=== PATIENT | female | born 1985 | race Caucasian/White ===

== ENCOUNTER 2017-10-06 17:40 | Emergency (ER) | payer SELFPAY ==
[~2017-10-06] VITALS: Ht 165.1 cm; Wt 81.6 kg
[2017-10-06 17:49] VITALS: BP 104/52
[2017-10-06] MEDS ORDERED: IV NORMAL SALINE 1,000ML 1,000 ML IV ONE (18:00)
[2017-10-06] MEDS ORDERED: IV NORMAL SALINE 500ML 500 ML IV SCH (18:00)
--- NOTE | 2017-10-06 18:07 | PHYS DOC ---
Past History Past Medical History: No Pertinent History Past Surgical History: No Surgical History Smoking: Non-smoker Drug Use: Marijuana, Methamphetamine Adult General Chief Complaint Chief Complaint: ABDOMINAL PAIN HPI HPI 32-year-old female patient A2 states she had her menstruation in early August and had today's vaginal bleeding 2 weeks ago that was unlike her usual 70s of vaginal bleeding and had to home positive test. Patient states she has one negative test in the clinic and one positive test in [facility] one week ago. Patient complaining of lower abdominal pain for the last 3 days as a constant and sharp pain with radiation to her back without vaginal bleeding or discharge and rated her pain 10 over 10. Patient also states she was not able to urinate for the last 3 days that happens frequently with episodes of UTI. Patient complaining of subjective fever and chills without nausea and vomiting, constipation and diarrhea, shortness of breath and chest pain. Review of Systems Review of Systems Constitutional: Ports subjective fever or chills [] Eyes: Denies change in visual acuity, redness, or eye pain [] HENT: Denies nasal congestion or sore throat [] Respiratory: Denies cough or shortness of breath [] Cardiovascular: No additional information not addressed in HPI [] GI: Ports abdominal pain, denies nausea, vomiting, bloody stools or diarrhea [] : Denies dysuria or hematuria [] Musculoskeletal: Denies back pain or joint pain [] Integument: Denies rash or skin lesions [] Neurologic: Denies headache, focal weakness or sensory changes [] Endocrine: Denies polyuria or polydipsia [] All other systems were reviewed and found to be within normal limits, except as documented in this note. Current Medications Current Medications Current Medications Medications (Trade) Dose Ordered Sig/Aleks Start Time Stop Time Status Last Admin Dose Admin Sodium Chloride 500 ml @ 500 mls/hr Q1H 10/06/17 18:00 UNV Allergies Allergies Allergies Coded Allergies Type Severity Reaction Last Updated Verified Penicillins Allergy Unknown 10/06/17 Yes mold Allergy Unknown 10/06/17 Yes Physical Exam Physical Exam Constitutional: Well nourished, moderate distress, non-toxic appearance, anxious and agitated. [] HENT: Normocephalic, atraumatic, oropharynx moist, no oral exudates. [] Eyes: PERRLA, EOMI, conjunctiva normal, no discharge. [] Neck: Normal range of motion, no tenderness, supple, no stridor. [] Cardiovascular:Heart rate regular rhythm, no murmur [] Lungs & Thorax: Bilateral breath sounds clear to auscultation [] Abdomen: Bowel sounds normal, soft, suprapubic guarding without tenderness, no masses, no pulsatile masses. [] Skin: Warm, dry, no erythema, no rash. [] Back: No tenderness, no CVA tenderness. [] Extremities: No tenderness, no cyanosis, no clubbing, ROM intact, no edema. [] Neurologic: Alert and oriented X 3, normal motor function, normal sensory function, no focal deficits noted. [] Psychologic: Affect anxious, judgement normal, mood normal. [] Current Patient Data Vital Signs Vital Signs Date Time Temp Pulse Resp B/P (MAP) Pulse Ox O2 Delivery O2 Flow Rate FiO2 10/06/17 17:49 98.8 100 18 100 Room Air EKG EKG [] Radiology/Procedures Radiology/Procedures [] Impressions: CT Abdomen and Pelvis With Intravenous Contrast: History: Severe lower abdominal pain, fever, chills for 3 days.. Comparison: None. Technique: After administration of intravenous contrast, 75 mL Omnipaque-300, CT of the abdomen and pelvis was performed. Exposure: One or more of the following individualized dose reduction techniques were utilized for this examination: 1. Automated exposure control 2. Adjustment of the mA and/or kV according to patient size 3. Use of iterative reconstruction technique Findings: Evaluation of enteric structures may be limited by lack of oral contrast. Liver, spleen, pancreas, gallbladder, and bilateral adrenal glands are unremarkable. Bilateral kidneys enhance symmetrically. No bowel obstruction or inflammation is identified. Appendix appears within normal limits. The uterus is retroflexed. There are bilateral fluid-filled tubular structures involving the pelvis adjacent to the uterus, with evidence of inflammation, favored to represent bilateral tubo-ovarian abscesses versus bilateral hydrosalpinges. Urinary bladder is displaced anteriorly. Urinary bladder is not well distended with urine. Given level of distention, urinary bladder wall appears at upper limits of normal. Degenerative disc disease is seen at L5-S1. Impression: 1. Bilateral tubular structures are seen in the pelvis with evidence of inflammation. Findings are compatible with bilateral tubo-ovarian abscesses versus bilateral hydrosalpinges. Recommend correlation with history and physical including pelvic examination. Electronically signed by: Kashmir Castañeda MD (10/06/2017 7:43 PM) [facility] DICTATED AND SIGNED BY: KASHMIR CASTAÑEDA MD DATE: 10/06/171937 CC: ERIC SARAH DO; PCPCHRISTOPHER ~ Course & Med Decision Making Course & Med Decision Making Pertinent Labs are pending. Patient care transferred to Dr. Sarah at 1800 The patient had evidence of UTI in her urine. During my examination, the patient was still having significant pain this seemed unusual for UTI. I decided to do a CT of the abdomen and pelvis. The patient's labs showed a white count of 22.4 with left shift. The CT scan showed bilateral tubo-ovarian abscesses. I then performed a pelvic exam to get cultures and discovered a retained foreign body which appeared to be an old tampon. The patient states that her last period was 2 weeks ago and it is possible that this is a retained tampon from that time. I removed as much of the foreign object as I could. Blood cultures were obtained. The patient was started on cefoxitin and doxycycline by IV. I discussed the case with gynecology, Dr. Foreman and he is accepted the patient for admission at [facility]. I discussed all these results with the patient and she is in agreement with transfer and treatment. Dragon Disclaimer Dragon Disclaimer This electronic medical record was generated, in whole or in part, using a voice recognition dictation system. Departure Departure: Referrals: CHRISTOPHER LEIJA (PCP) HALLE SCOTT MD Oct 06, 2017 18:07 ERIC SARAH DO Oct 06, 2017 22:50
[2017-10-06 18:23] LABS: BASO # 0.1 x10^3/uL (0.0-0.2); BASO % 0 % (0-3); EOS % 0 % (0-3); HEMATOCRIT 37.4 % (36.0-47.0); HEMOGLOBIN 12.2 g/dL (12.0-15.5); LYMPH # 1.5 x10^3/uL (1.0-4.8); LYMPH % 7 % (24-48); MEAN CORPUSCULAR HEMOGLOBIN 28 pg (25-35); MEAN CORPUSCULAR HGB CONC 33 g/dL (31-37); MEAN CORPUSCULAR VOLUME 86 fL (79-100); MONO # 1.6 x10^3/uL (0.0-1.1); MONO % 7 % (0-9); NEUT # 19.2 x10^3uL (1.8-7.7); NEUT % 86 % (31-73); PLATELET COUNT 364 x10^3/uL (140-400); RED BLOOD COUNT 4.36 x10^6/uL (3.50-5.40); RED CELL DISTRIBUTION WIDTH 13.3 % (11.5-14.5); WHITE BLOOD COUNT 22.4 x10^3/uL (4.0-11.0)
[2017-10-06 18:37] LABS: PREG TEST PT QUAL NEGATIVE (NEG)
[2017-10-06 18:39] LABS: ALBUMIN 3.2 g/dL (3.4-5.0); ALBUMIN/GLOBULIN RATIO 0.8 (1.0-1.7); CALCIUM 8.9 mg/dL (8.5-10.1); GFR 64.7; POTASSIUM 3.1 mmol/L (3.5-5.1); TOTAL BILIRUBIN 0.9 mg/dL (0.2-1.0); TOTAL PROTEIN 7.3 g/dL (6.4-8.2)
[2017-10-06] MEDS ORDERED: POTASSIUM CHLORIDE 20 MEQ TABLET.ER. PO ONE (18:45)
[2017-10-06] MEDS ORDERED: IOHEXOL 300 MG/ML 75 ML VIAL. IV ONE (19:30)
--- NOTE | 2017-10-06 19:47 | RAD ---
CT Abdomen and Pelvis With Intravenous Contrast: History: Severe lower abdominal pain, fever, chills for 3 days.. Comparison: None. Technique: After administration of intravenous contrast, 75 mL Omnipaque-300, CT of the abdomen and pelvis was performed. Exposure: One or more of the following individualized dose reduction techniques were utilized for this examination: 1. Automated exposure control 2. Adjustment of the mA and/or kV according to patient size 3. Use of iterative reconstruction technique Findings: Evaluation of enteric structures may be limited by lack of oral contrast. Liver, spleen, pancreas, gallbladder, and bilateral adrenal glands are unremarkable. Bilateral kidneys enhance symmetrically. No bowel obstruction or inflammation is identified. Appendix appears within normal limits. The uterus is retroflexed. There are bilateral fluid-filled tubular structures involving the pelvis adjacent to the uterus, with evidence of inflammation, favored to represent bilateral tubo-ovarian abscesses versus bilateral hydrosalpinges. Urinary bladder is displaced anteriorly. Urinary bladder is not well distended with urine. Given level of distention, urinary bladder wall appears at upper limits of normal. Degenerative disc disease is seen at L5-S1. Impression: 1. Bilateral tubular structures are seen in the pelvis with evidence of inflammation. Findings are compatible with bilateral tubo-ovarian abscesses versus bilateral hydrosalpinges. Recommend correlation with history and physical including pelvic examination. Electronically signed by: Kashmir Lange MD (10/06/2017 7:43 PM) [facility]
[2017-10-06 20:40] LABS: % BANDS 2 % (0-9); % LYMPHS 4 % (24-48); % MONOS 5 % (0-10); % SEGS 86 % (35-66)
[2017-10-06 20:42] LABS: PLT ESTIMATE ADEQUATE (ADEQUATE)
[2017-10-06] MEDS ORDERED: HYDROmorphone PF 1 MG/ML DISP.SYRIN IV ONE (20:45)
[2017-10-06] MEDS ORDERED: ONDANSETRON PF 4 MG/2 ML VIAL. IV ONE (20:45)
[2017-10-06 20:46] LABS: STOMATOCYTES PRESENT
[2017-10-06 20:50] LABS: % ATYL 3 % (0-0)
[2017-10-06 22:11] LABS: BILIRUBIN,URINE SMALL (NEG); CLARITY,URINE CLOUDY; COLOR,URINE YELLOW; NITRITE,URINE NEG (NEG); UROBILINOGEN,URINE 2 mg/dL (0.2 mg/dL)
[2017-10-06 22:12] LABS: GLUCOSE,URINE NEG (NEG)
[2017-10-06] MEDS ORDERED: DOXYCYCLINE HYCLATE 100 MG in IV DEXTROSE 5% 100 ML IV ONE (22:30)
== END 2017-10-07 00:06 | disposition short-term general hospital (02) ==
LOC: ER 17:40
DX: N39.0 Urinary tract infection, site not specified (principal); N70.92 Oophoritis, unspecified; Z88.0 Allergy status to penicillin; Z91.048 Other nonmedicinal substance allergy status
CPT/HCPCS: 36415; 74177; 80053; 81003; 84702; 84703; 85007; 85025; 87040; 96365; 96366; 96368; 96375; 96376; 99285; J0694; J2405; J3010; J3490; Q9967; J7030

== ENCOUNTER 2019-08-24 13:12 | Emergency (ER) | payer BC ==
[~2019-08-24] VITALS: Ht 165.1 cm; Wt 98.0 kg
--- NOTE | 2019-08-24 13:39 | PHYS DOC ---
Past History Past Medical History: No Pertinent History Past Surgical History: No Surgical History Smoking: Non-smoker Drug Use: Marijuana, Methamphetamine General Adult EDM: Chief Complaint: ABDOMINAL PAIN HPI: HPI: Patient is a 34-year-old female who presents to the emergency department for evaluation of pelvic pain. She states she began her menstrual period today and has had significantly increased pelvic cramping. She states she had a similar episode about 2 years ago, when she was transferred from here to and diagnosed with fallopian tube cysts. She has not noticed any vaginal discharge. She has not had any nausea, vomiting, dysuria, fevers, or chills. There are no alleviating or exacerbating factors to her symptoms. Review of Systems: Review of Systems: Constitutional: Denies fever or chills Eyes: Denies change in visual acuity HENT: Denies nasal congestion or sore throat Respiratory: Denies cough or shortness of breath Cardiovascular: Denies chest pain or edema GI: Denies abdominal pain, nausea, vomiting, bloody stools or diarrhea : Denies dysuria. Reports vaginal bleeding and pelvic pain. Musculoskeletal: Denies back pain or joint pain Integument: Denies rash Neurologic: Denies headache, focal weakness or sensory changes Endocrine: Denies polyuria or polydipsia Lymphatic: Denies swollen glands Psychiatric: Denies depression or anxiety Heart Score: Risk Factors: Risk Factors: DM, Current or recent (<one month) smoker, HTN, HLP, family history of CAD, obesity. Risk Scores: Score 0 - 3: 2.5% MACE over next 6 weeks - Discharge Home Score 4 - 6: 20.3% MACE over next 6 weeks - Admit for Clinical Observation Score 7 - 10: 72.7% MACE over next 6 weeks - Early Invasive Strategies Current Medications: Current Meds: Current Medications Medications (Trade) Dose Ordered Sig/Aleks Start Time Stop Time Status Last Admin Dose Admin Ketorolac Tromethamine (Toradol 30mg Vial) 30 mg 1X ONCE 08/24/19 13:45 08/24/19 13:46 UNV Allergies: Allergies: Allergies Coded Allergies Type Severity Reaction Last Updated Verified Penicillins Allergy Unknown 10/06/17 Yes amoxicillin Allergy Unknown 08/24/19 Yes mold Allergy Unknown 10/06/17 Yes Physical Exam: PE: PHYSICAL EXAM: CONSTITUTIONAL: Well developed, well nourished HEAD: normocephalic, atraumatic EENT: PERRL, EOMI. Conjunctivae normal color, sclerae non-icteric; moist mucous membranes. NECK: Supple, non-tender; no meningismus. LUNGS: Lungs CTA, breathing even and unlabored. Normal air movement. HEART: Regular rate and rhythm, no murmur CHEST: No deformity; non-tender ABDOMEN: The abdomen is soft, and non-tender, no masses or bruits. There is, however, suprapubic tenderness to palpation, without rebound or guarding. EXTREM: Normal ROM; no deformity, no calf tenderness. Normal pulses palpable in all extremities. There is no pedal edema. SKIN: No rash; no diaphoresis NEURO: Alert; normal speech and cognition; CN's grossly intact; strength grossly intact without focal deficit. BACK: No CVA TTP. GENITOURINARY: Normal external genitalia. There is a trace amount of vaginal bleeding, the cervix otherwise appears normal, there is mild cervical motion tenderness, there is no vaginal discharge, there is no definite suprapubic mass or suprapubic tenderness to palpation. Exam was performed in the presence of the patient's nurse, Arabella. Current Patient Data: Labs: Laboratory Tests Test 08/24/19 14:00 08/24/19 14:11 08/24/19 14:20 08/24/19 14:31 Urine Collection Type U cath Urine Color Yellow Urine Clarity Clear Urine pH 6.0 Urine Specific [place] >=1.030 Urine Protein Trace Urine Glucose (UA) Neg mg/dL Urine Ketones (Stick) >=160 mg/dL Urine Blood Small Urine Nitrite Neg Urine Bilirubin Neg Urine Urobilinogen Dipstick 0.2 mg/dL Urine Leukocyte Esterase Neg Urine RBC 3-5 /HPF Urine WBC 0 /HPF Urine Squamous Epithelial Cells Mod /LPF Urine Bacteria Mod /HPF Urine Mucus Marked /LPF Bedside Urine HCG, Qualitative hcg negative White Blood Count 13.7 x10^3/uL Red Blood Count 4.72 x10^6/uL Hemoglobin 13.7 g/dL Hematocrit 41.4 % Mean Corpuscular Volume 88 fL Mean Corpuscular Hemoglobin 29 pg Mean Corpuscular Hemoglobin Concent 33 g/dL Red Cell Distribution Width 13.4 % Platelet Count 351 x10^3/uL Neutrophils (%) (Auto) 91 % Lymphocytes (%) (Auto) 6 % Monocytes (%) (Auto) 3 % Eosinophils (%) (Auto) 0 % Basophils (%) (Auto) 0 % Neutrophils # (Auto) 12.4 x10^3uL Lymphocytes # (Auto) 0.9 x10^3/uL Monocytes # (Auto) 0.4 x10^3/uL Eosinophils # (Auto) 0.0 x10^3/uL Basophils # (Auto) 0.1 x10^3/uL Sodium Level 140 mmol/L Potassium Level 3.6 mmol/L Chloride Level 105 mmol/L Carbon Dioxide Level 24 mmol/L Anion Gap 11 Blood Urea Nitrogen 20 mg/dL Creatinine 0.8 mg/dL Estimated GFR (Cockcroft-Gault) 82.6 BUN/Creatinine Ratio 25 Glucose Level 127 mg/dL Calcium Level 8.9 mg/dL Total Bilirubin 0.5 mg/dL Aspartate Amino Transf (AST/SGOT) 19 U/L Alanine Aminotransferase (ALT/SGPT) 22 U/L Alkaline Phosphatase 56 U/L Total Protein 7.4 g/dL Albumin 3.8 g/dL Albumin/Globulin Ratio 1.1 Current Medications Medications (Trade) Dose Ordered Sig/Aleks Route PRN Reason Start Time Stop Time Status Last Admin Dose Admin Ketorolac Tromethamine (Toradol 30mg Vial) 30 mg 1X ONCE IVP 08/24/19 13:45 08/24/19 13:46 DC 08/24/19 14:24 Ondansetron HCl (Zofran) 4 mg STK-MED ONCE .ROUTE 08/24/19 14:49 08/24/19 14:49 DC Ondansetron HCl (Zofran) 4 mg 1X ONCE IVP 08/24/19 15:00 08/24/19 15:01 DC 08/24/19 14:52 Morphine Sulfate (Morphine 4mg Syringe) 4 mg STK-MED ONCE .ROUTE 08/24/19 15:00 08/24/19 15:01 DC Morphine Sulfate (Morphine 4mg Syringe) 4 mg 1X ONCE IV 08/24/19 15:15 08/24/19 15:17 DC 08/24/19 15:07 EKG: EKG: [] Radiology/Procedures: Radiology/Procedures: PROCEDURE: US PELVIS W/TV Examination: US PELVIS W/TV History: pelvic pain Comparison/Correlation: 10/06/2017 CT abdomen and pelvis with contrast Findings: Transabdominal and transvaginal pelvic ultrasound exam was performed. Transvaginal technique was utilized to better assess the adnexal structures. Examination for lymphadenopathy completed due to the patient having significant pain and a due to patient motion. Uterus measures 7.2 cm x 4.6 cm x 3.8 cm. And is retroflexed Myometrium is normal. Endometrial thickness is 0.3 cm. There is no intrauterine fluid collection or intrauterine gestation. Left ovary measures 3.3 cm x 2.7 cm x 1.7 cm with multiple small physiologic appearing follicles. Normal flow is evident involving the left ovary. Right ovary is not visualized. Free fluid is seen in the right adnexal region. A fibroid is present involving the anterior uterine body measuring up to 2.3 cm. Impression: Minimal pelvic free fluid is visible is physiologic. Fibroid involves the uterus. No suspicious process identified although the right ovary is not visualized on this exam. Exam cannot be fully completed reportedly due to significant pain experienced by the patient. If ectopic gestation is a concern, then interval follow-up serial beta hCG and follow-up ultrasound exam would be recommended.[] Course & Med Decision Making: Course & Med Decision Making Pertinent Labs and Imaging studies reviewed. (See chart for details) [] WET PREP Final YEAST NONE SEEN TRICHOMONAS NONE SEEN CLUE CELLS NONE SEEN WBCS FEW RBCS MANY SQUAMOUS EPS FEW COMMENTS NONE 4:15 PM: The patient's condition remains stable. I discussed test results in detail, the need for close outpatient follow-up with gynecology and return precautions. Panfilo Disclaimer: Panfilo Disclaimer: This electronic medical record was generated, in whole or in part, using a voice recognition dictation system. Departure Departure: Impression: Primary Impression: Pelvic pain in female Disposition: 01 HOME/RESIDENCE PRIOR TO ADM Condition: STABLE Patient Instructions: Pelvic Pain, Female Additional Instructions: Call [phone] to schedule an appointment with gynecology at [facility] for further outpatient evaluation. Return to medical care for any new or worsening symptoms, fever, vomiting, lethargy, or any other concerning symptoms. Scripts Diclofenac Sodium (DICLOFENAC SODIUM) 50 Mg Tablet. 1 TAB PO BID for pain, #20 TAB 1 Refill Prov: DONNELL BRANDT MD 08/24/19 Justification of Admission: Justification of Admission: Justification of Admission Dx: N/A DONNELL BRANDT MD Aug 24, 2019 13:39
[2019-08-24] MEDS ORDERED: KETOROLAC 30 MG/ML VIAL. IVP ONE (13:45)
--- NOTE | 2019-08-24 14:20 | RAD ---
Examination: US PELVIS W/TV History: pelvic pain Comparison/Correlation: 10/06/2017 CT abdomen and pelvis with contrast Findings: Transabdominal and transvaginal pelvic ultrasound exam was performed. Transvaginal technique was utilized to better assess the adnexal structures. Examination for lymphadenopathy completed due to the patient having significant pain and a due to patient motion. Uterus measures 7.2 cm x 4.6 cm x 3.8 cm. And is retroflexed Myometrium is normal. Endometrial thickness is 0.3 cm. There is no intrauterine fluid collection or intrauterine gestation. Left ovary measures 3.3 cm x 2.7 cm x 1.7 cm with multiple small physiologic appearing follicles. Normal flow is evident involving the left ovary. Right ovary is not visualized. Free fluid is seen in the right adnexal region. A fibroid is present involving the anterior uterine body measuring up to 2.3 cm. Impression: Minimal pelvic free fluid is visible is physiologic. Fibroid involves the uterus. No suspicious process identified although the right ovary is not visualized on this exam. Exam cannot be fully completed reportedly due to significant pain experienced by the patient. If ectopic gestation is a concern, then interval follow-up serial beta hCG and follow-up ultrasound exam would be recommended. Electronically signed by: Florian Colin MD (08/24/2019 2:17 PM) [id number]
[2019-08-24 14:36] LABS: BILIRUBIN,URINE NEG (NEG); CLARITY,URINE CLEAR; COLOR,URINE YELLOW; GLUCOSE,URINE NEG (NEG)
[2019-08-24 14:37] LABS: NITRITE,URINE NEG (NEG); UROBILINOGEN,URINE 0.2 mg/dL (0.2 mg/dL)
[2019-08-24 14:42] LABS: BACTERIA,URINE MOD /HPF (0-FEW); SQUAMOUS EPITHELIAL CELL,UR MOD /LPF; WBC,URINE 0 /HPF (0-4)
[2019-08-24] MEDS ORDERED: ONDANSETRON PF 4 MG/2 ML VIAL. ONE (14:49)
[2019-08-24 14:56] LABS: BASO # 0.1 x10^3/uL (0.0-0.2); BASO % 0 % (0-3); EOS % 0 % (0-3); HEMATOCRIT 41.4 % (36.0-47.0); HEMOGLOBIN 13.7 g/dL (12.0-15.5); LYMPH # 0.9 x10^3/uL (1.0-4.8); LYMPH % 6 % (24-48); MEAN CORPUSCULAR HEMOGLOBIN 29 pg (25-35); MEAN CORPUSCULAR HGB CONC 33 g/dL (31-37); MEAN CORPUSCULAR VOLUME 88 fL (79-100); MONO # 0.4 x10^3/uL (0.0-1.1); MONO % 3 % (0-9); NEUT # 12.4 x10^3uL (1.8-7.7); NEUT % 91 % (31-73); PLATELET COUNT 351 x10^3/uL (140-400); RED BLOOD COUNT 4.72 x10^6/uL (3.50-5.40); RED CELL DISTRIBUTION WIDTH 13.4 % (11.5-14.5); WHITE BLOOD COUNT 13.7 x10^3/uL (4.0-11.0)
[2019-08-24] MEDS ORDERED: MORPHINE SULFATE 4 MG/ML DISP.SYRIN. ONE (15:00)
[2019-08-24] MEDS ORDERED: ONDANSETRON PF 4 MG/2 ML VIAL. IVP ONE (15:00)
[2019-08-24 15:03] LABS: CALCIUM 8.9 mg/dL (8.5-10.1); CREATININE 0.8 mg/dL (0.6-1.0); GFR 82.6; POTASSIUM 3.6 mmol/L (3.5-5.1)
[2019-08-24 15:09] LABS: ALBUMIN 3.8 g/dL (3.4-5.0); ALBUMIN/GLOBULIN RATIO 1.1 (1.0-1.7); TOTAL BILIRUBIN 0.5 mg/dL (0.2-1.0); TOTAL PROTEIN 7.4 g/dL (6.4-8.2)
[2019-08-24] MEDS ORDERED: MORPHINE SULFATE 4 MG/ML DISP.SYRIN. IV ONE (15:15)
[2019-08-24] MEDS ORDERED: DICL50TA4 PO (16:21)
[2019-08-24 16:55] VITALS: BP 106/65
[2019-08-25 19:07] LABS: CHLAMYDIA PROBE Negative (Negative)
== END 2019-08-24 16:55 | disposition home or self-care (01) ==
LOC: ER 13:12
DX: R10.2 Pelvic and perineal pain (principal); N93.9 Abnormal uterine and vaginal bleeding, unspecified; Z88.0 Allergy status to penicillin; Z88.1 Allergy status to other antibiotic agents; Z88.8 Allergy status to other drugs, medicaments and biological substances
CPT/HCPCS: 36415; 76830; 76856; 80053; 81001; 81025; 85025; 87086; 87491; 87591; 96374; 96375; 99284; J1885; J2270; J2405; Q0111

== ENCOUNTER 2020-01-05 21:48 | Emergency (ER) | payer BC ==
[~2020-01-05] VITALS: Ht 160 cm; Wt 91.0 kg
[~2020-01-05 21:48] MED LIST: DICL50TA4 PO
[2020-01-06] MEDS ORDERED: HYDROcodone/APAP 5/325MG 1 TAB TABLET PO ONE (01:00)
[2020-01-06] MEDS ORDERED: SMZ/TMP 400/80MG TABLET. PO SCH (01:00)
--- NOTE | 2020-01-06 01:07 | PHYS DOC ---
Past History Past Medical History: Anemia Additional Past Medical Histor: fallopian tube cyst Past Surgical History: No Surgical History Smoking: Non-smoker Alcohol Use: Occasionally Drug Use: Marijuana, Methamphetamine Adult General Chief Complaint Chief Complaint: ANIMAL BITE HPI HPI Patient is a 34-year-old female who presents for laceration. Patient has history of illicit substance and reports attending for close friend today. She was sad and subsequently drank heavily. Patient went back home and was playing with her pitbull aggressively when the pitbull apparently became violent attacking patient. Patient suffered several superficial wounds to ricky ateral extremities with x1 puncture wound on right hand and large laceration at distal forearm. Wound was immediately covered and pressure applied while boyfriend transported her to our ER for evaluation. Patient is not on any daily medications, no significant coagulopathy history, not on any blood thinners, unsure of last tetanus, it was later found that dog is up-to-date on all vaccinations Review of Systems Review of Systems Fourteen body systems of review of systems have been reviewed. See HPI for pertinent positives and negative responses, other nunez all other systems are negative, non-pertinent or non-contributory Current Medications Current Medications Current Medications Medications (Trade) Dose Ordered Sig/Aleks Start Time Stop Time Status Last Admin Dose Admin Acetaminophen/ Hydrocodone Bitart (Lortab 5/325) 1 tab 1X ONCE 01/06/20 01:00 01/06/20 01:01 UNV 01/06/20 00:57 1 TAB Trimethoprim/ Sulfamethoxazole (Bactrim Ss) 1 tab 1X 01/06/20 01:00 UNV 01/06/20 00:57 1 TAB Allergies Allergies Allergies Coded Allergies Type Severity Reaction Last Updated Verified Penicillins Allergy Unknown 10/06/17 Yes amoxicillin Allergy Unknown 08/24/19 Yes mold Allergy Unknown 10/06/17 Yes Physical Exam Physical Exam Constitutional: Well developed, well nourished, moderate distress, acutely intoxicated, non-toxic appearance. HENT: Normocephalic, atraumatic, bilateral external ears normal, oropharynx moist, no oral exudates, nose normal. Eyes: PERRLA, EOMI, conjunctiva normal, no discharge. Neck: Normal range of motion, no tenderness, supple, no stridor. Cardiovascular: Heart rate regular, sinus rhythm, no murmurs rubs or gallops Lungs & Thorax: Bilateral breath sounds clear to auscultation Abdomen: Bowel sounds normal, soft, no tenderness, no masses, no pulsatile masses. Nonsurgical abdomen, no peritoneal signs Skin: Warm, dry, no erythema, no rash. Back: No tenderness, no CVA tenderness. Extremities: No cyanosis, no clubbing, no edema. Range of motion of distal right upper extremity diminished due to pain otherwise neurovascularly intact as stated below with good pulses, motor and sensory function. Patient has significant horizontal 6 cm laceration on distal forearm on the dorsal surface. Subcutaneous fat/tissue and muscle is exposed without any obvious bony involvement or entrapped foreign body Neurologic: Alert and oriented X 3, normal motor & sensory function, no focal deficits noted. Psychologic: Affect normal, judgement normal, mood normal. Current Patient Data Vital Signs Vital Signs Date Time Temp Pulse Resp B/P (MAP) Pulse Ox O2 Delivery O2 Flow Rate FiO2 01/05/20 21:48 96.5 85 28 119/61 (80) 95 Room Air EKG EKG [] Radiology/Procedures Radiology/Procedures Left hand x-ray was negative for any acute bony abnormalities, this was interpreted and read by radiologist so please defer to their documentation as needed Right hand and wrist x-ray obtained to better evaluate site of significant injury. These plain films were read and interpreted by myself and pending radiology read at time of discharge. No acute bony abnormality present, no obvious retained foreign body, significant soft tissue disruption and swelling found at distal forearm on dorsal surface Heart Score Risk Factors: Risk Factors: DM, Current or recent (<one month) smoker, HTN, HLP, family history of CAD, obesity. Risk Scores: Risk Factors: DM, Current or recent (<one month) smoker, HTN, HLP, family histo ry of CAD, obesity. Course & Med Decision Making Course & Med Decision Making Hysterical acutely intoxicated patient seen on arrival ABCs nonconcerning Comprehensive history and physical examination obtained Clinical concern for fracture of the left hand which was unremarkable, no obvious bony abnormality or retained foreign body found at distal right upper extremity Given extent of injury, [facility] on-call physician Dr. Mtz was contacted and case reviewed. Joint decision was made for immediate closure of subcutaneous layer with absorbable Vicryl sutures with additional superficial closure per protocol Close follow-up with PCP and outpatient surgeon as indicated by PCP advised Verbal consent obtained and patient had right upper extremity sutures placed in addition to several puncture wound sites dressed and draped appropriately Patient had tetanus shot updated, she was started on antibiotics and was given x1 double strength Bactrim for which she has tolerated in the past prior to discharge Patient ultimately sent home with prescriptions for Bactrim double strength for infection control given extent of wound and short-term opioid prescription for as needed severe pain control Strict return precautions were given with good understanding by patient, all questions and concerns regarding plan of care and prescribed medications addressed prior to ER departure in stable condition Dragon Disclaimer Dragon Disclaimer This electronic medical record was generated, in whole or in part, using a voice recognition dictation system. Laceration Repair Lac Repair Indication: Open 6 cm dorsal surface of distal right forearm laceration Procedure: Patient's bilateral upper extremities were irrigated with copious amounts of normal saline. The patient was placed in the appropriate position and anesthesia around the with 1% lidocaine with epinephrine, a total of 8cc administered.The laceration required 2 part closure. A total of times 5 subcutaneous simple interrupted sutures (3.0 Vicryl) applied followed by an additional x9 simple interrupted sutures (3.0 Prolene) to best approximate skin borders. Patient had other minor puncture wounds and abrasions to bilateral hands which were cleansed and triple antibiotic cream was applied. There is x1 puncture wound on dorsal surface of third digit on right hand which required Dermabond in addition to right hyperthenar eminence that required Dermabond. Patient's major laceration had pressure dressing applied with obvious hemostasis achieved and remained neurovascularly intact after reexamination of wrap Total repaired wound length: 6 cm Other Items: Dermabond The patient tolerated the procedure well without any immediate symptoms and/or complications. Estimated blood loss <5cc Departure Departure: Impression: Primary Impression: Dog bite Additional Impressions: Laceration of multiple sites of right upper extremity Alcohol abuse Disposition: 01 DC HOME SELF CARE/HOMELESS Condition: STABLE Referrals: PCP,CHRISTOPHER (PCP) HENRY MTZ MD Please call the surgeon as discussed to schedule outpatient follow-up appointment for wound recheck and continued care for your complicated laceration Patient Instructions: Animal Bite, Sulfamethoxazole; Trimethoprim, SMX-TMP tablets Additional Instructions: As discussed prior to ER departure, please call primary care physician to be seen for repeat evaluation in upcoming 48 hours You will need your sutures removed in the upcoming 7 to 14 days Please discuss potential need for outpatient surgical consultation if delayed wound healing occurs. Please take prescribed antibiotics to completion as this wound is high risk for infection You are educated extensively on concerning signs or symptoms that should prompt immediate medical attention should they arise prior to outpatient follow-up It was a pleasure to take care of you and I wish you a speedy recovery! Scripts Hydrocodone Bit/Acetaminophen (NORCO 5-325 TABLET) 1 Each Tablet 1 TAB PO PRN Q6HRS PRN for PAIN, #12 TAB 0 Refills Prov: ЕКАТЕРИНА DURAN DO 01/06/20 Sulfamethoxazole/Trimethoprim (BACTRIM DS TABLET) 1 Each Tablet 1 TAB PO BID for Skin infection for 7 Days, #14 TAB 0 Refills Prov: ЕКАТЕРИНА DURAN DO 01/06/20 Problem Qualifiers ЕКАТЕРИНА DURAN DO Jan 06, 2020 01:07
[2020-01-06] MEDS ORDERED: SULF1TAB24 PO (01:25)
--- NOTE | 2020-01-06 01:37 | RAD ---
Left hand 3 views. HISTORY: Left index knuckle injury 3 views were taken of the left hand. There is not evidence of an acute fracture or osseous abnormality. There is soft tissue swelling dorsally. IMPRESSION: 1. Posterior soft tissue swelling. 2. No fracture or acute osseous abnormality. Electronically signed by: Rajan Quesada MD (01/06/2020 1:34 AM) [id number]
[2020-01-06 01:45] VITALS: BP 135/57
[2020-01-06] MEDS ORDERED: HYDR-3165 PO (01:47)
[2020-01-06] MEDS ORDERED: DIPH,PERTUSS(ACELL),TET VAC/PF 0.5 ML SYRINGE. VAX IM ONE (02:00)
--- NOTE | 2020-01-06 08:16 | RAD ---
EXAMINATION: HAND RIGHT 3V, WRIST 3V RIGHT CLINICAL HISTORY: Dogbite/laceration right wrist TECHNIQUE: HAND RIGHT 3V, WRIST 3V RIGHT Number of Images/Views: 3 each COMPARISON: None FINDINGS: Moderate soft tissue defect along the dorsal wrist with soft tissue swelling and subcutaneous emphysema along the dorsal and ulnar aspects of the distal forearm/wrist, consistent with with history of dog bite. No retained radiopaque foreign body visualized. Joint spaces and alignment maintained. No acute fracture. Several small cystic changes in the carpal bones, nonspecific. IMPRESSION: Soft tissue changes along the dorsal wrist as described, consistent with reported dog bite. No retained radiopaque foreign body. No acute osseous abnormality. Electronically signed by: Emerson Carrillo DO (01/06/2020 8:14 AM) [id number]
== END 2020-01-06 02:08 | disposition home or self-care (01) ==
LOC: ER 21:48
DX: S51.811A Laceration without foreign body of right forearm, initial encounter (principal); F10.10 Alcohol abuse, uncomplicated; F12.10 Cannabis abuse, uncomplicated; F15.10 Other stimulant abuse, uncomplicated; Z86.2 Personal history of diseases of the blood and blood-forming organs and certain disorders involving the immune mechanism; Z88.0 Allergy status to penicillin; Z88.1 Allergy status to other antibiotic agents; Z88.8 Allergy status to other drugs, medicaments and biological substances; Y90.9 Presence of alcohol in blood, level not specified; W54.0XXA Bitten by dog, initial encounter; Y93.89 Activity, other specified; Y92.89 Other specified places as the place of occurrence of the external cause; Y99.8 Other external cause status
CPT/HCPCS: 12002; 73110; 73130; 99285-25